=== PATIENT | female | born 1995 | race Hispanic/Latino ===

== ENCOUNTER 2018-09-03 21:43 | Emergency (ER) | payer OTHER ==
[2018-09-03] MEDS ORDERED: Lidocaine 2% PF 5 ML VIAL ONE (22:00)
== END 2018-09-03 22:37 | disposition home or self-care (01) ==
LOC: ERS 21:43
DX: S60.444A External constriction of right ring finger, initial encounter (principal); S60.414A Abrasion of right ring finger, initial encounter; W49.04XA Ring or other jewelry causing external constriction, initial encounter
CPT/HCPCS: 99283; J2001